=== PATIENT | female | born 1980 | race Caucasian/White ===

== ENCOUNTER 2018-01-02 10:28 | Emergency (ER) | payer MEDICAID, SELFPAY ==
[2018-01-02 10:30] VITALS: BP 134/69; PULSE 77; RESP 16; TEMP 36.6; O2SAT 99; BMI 21.6
[2018-01-02 11:28] LABS: Mucous, Urine 0 SEEN /hpf (<or=2+); Squamous Epithelial Cells - UA 0 SEEN /hpf (5-10)
[2018-01-02 11:31] LABS: Color, Urine Yellow (Yellow); Glucose, Dipstick Normal (Normal); Ketone-Dipstick 5 mg/dl (Negative); Leukocyte Esterase-Dipstick 500 /ul (Negative); Nitrite-Dipstick Positive (Negative); Occult Blood-Urine 250 /ul (Negative); Protein-Dipstick 30 mg/dl (Negative); Urine Bilirubin Dipstick Negative (Negative); Urine Clarity Cloudy (Clear); Urine Urobilinogen Normal (Normal)
[2018-01-02 11:36] LABS: Internal QC Validated? YES +Cl - CLEAR BKGD; Pregnancy, Urine Negative Negative
[2018-01-02 11:43] LABS: White Blood Cells 10-25 SEEN /hpf (0-5)
[2018-01-02 11:44] LABS: Bacteria 2+ /hpf (None Seen); Red Blood Cells-Urine 25-50 SEEN /hpf (0-5)
--- NOTE | 2018-01-02 12:57 | ED.DCSUM_ITS ---
- ER Visit Summary Date of Service: 01/02/18 Chief Complaint: UTI History of Present Illness: The patient is a 37 F with burning and cloudy urine for about a week and a half. The patient has some lower back pain but it does not feel like her prior kidney stones. No fever or systemic symptoms. Physical Examination: Afebrile and vital signs unremarkable. Nontoxic and in no acute distress. Heart regular. Abdomen soft and nontender. Back is nontender. Skin appears normal. Test Results: test negative. Urinalysis does show signs of infection. She does have 25-50 red cells as well. Emergency Department Course and Treatment: Patient is not septic. No indication for further imaging or laboratory studies. Her pain is not consistent with ureteral colic. She does not have tenderness over her kidneys. Abdomen is unremarkable. No HEAD ATHLETIC TRAINER/STRENGTH COACH symptoms. Patient will be treated with Keflex. Follow-up with primary care. Return for any new or worsening issues. Treatment Plan: As above Disposition: Discharged Impression: 1. UTI, cystitis This note was generated with [employer] dictation software. It may contain incorrect words, spelling, and punctuation that were not noted in review of the chart prior to signing ED Disposition - Plan for ED Patient: Chief Complaint: Complaint Referrals: Samuel Hunter [Primary Care Provider] -
--- NOTE | 2018-01-02 12:57 | ED.DEP ---
ED Disposition - Plan for ED Patient: Chief Complaint: Complaint Instructions: ED UTI Cystitis Female Prescriptions: Cephalexin [Keflex] 500 mg PO Q6 #28 cap Phenazopyridine HCl [Pyridium] 100 mg PO TID PRN PRN #6 tab PRN Reason: Pain Referrals: Samuel Hunter [Primary Care Provider] -
== END 2018-01-02 13:10 | disposition home or self-care (01) ==
LOC: ED 10:58
PROVIDERS: Emergency Provider Emergency Medicine; Family Provider Family Medicine; PCP Family Medicine
DX: N30.90 Cystitis, unspecified without hematuria (principal); Z72.0 Tobacco use; Z87.442 Personal history of urinary calculi
CPT/HCPCS: 81001; 81025; 99282

== ENCOUNTER 2018-02-03 05:36 | Emergency (ER) | payer MEDICAID, SELFPAY ==
[2018-02-03 05:37] VITALS: BP 110/79; PULSE 101; RESP 20; TEMP 37.4; O2SAT 99; BMI 21.9
[2018-02-03] MEDS: Ketorolac 30 MG/ML Syringe IV (06:11)
[2018-02-03] MEDS: 0.9% Normal Saline 1,000 ML 125 ML IV (06:11)
[2018-02-03] MEDS: Ondansetron 4 MG/2 ML Vial IV (06:11)
[2018-02-03 06:19] LABS: Absolute Lymphocyte Count 1.64 X10^3/ul (0.83-4.51); Absolute Neutrophil Count 7.6 X10^3/uL (2.0-7.7); Basophil# 0.02 X10^3/uL; Basophil% 0.2 % (0-1); Eosinophil# 0.14 X10^3/uL; Eosinophils% 1.3 % (0-5); Hematocrit 38.9 % (37-47); Hemoglobin 13.1 g/dl (12.0-15.0); Lymphocyte # 1.64 X10^3/ul (4.0); Lymphocyte % 15.7 % (19-41); Mean Corp Hgb Conc 33.7 g/gl (32-36); Mean Corpuscular Hgb 28.9 pg (27.0-32.0); Mean Corpuscular Volume 85.7 fL (81-99); Monocyte# 0.99 X10^3/uL; Monocyte% 9.5 % (0-10); Neutrophil # 7.63 X10^3/uL (2.7-7.7); Neutrophil % 73.2 % (47-70); Platelet Count 236 K/mm3 (150-450); RBC Distribution Width CV 14.4 % (11.6-14.6); RBC Distribution Width SD 45.7 fl (35.1-43.9); Red Blood Count 4.54 M/mm3 (4.2-5.4); White Blood Count 10.4 K/mm3 (4.4-11.0)
[2018-02-03 06:24] LABS: POSITIVE COUNT NO; POSITIVE DIFFERENTIAL NO; POSITIVE MORPHOLOGY NO
[2018-02-03 06:48] LABS: Anion Gap 8 (5-15); BUN 12 mg/dL (7-18); Calcium,Total 8.5 mg/dL (8.5-10.1); Chloride 104 mmol/L (98-107); Creatinine, Serum 0.67 mg/dL (0.55-1.02); EST Glomerular Filtration Rate 105 mL/min (>60); Est Glom Filt Rate - Afr Amer 127 mL/min (>60); Estimated Creatinine Clearance 101.44 ml/min; Glucose 104 mg/dL (74-106); Potassium 2.9 mmol/L (3.5-5.1); Sodium Level 139 mmol/L (136-145)
[2018-02-03 06:51] LABS: Pregnancy, Serum, hCG Quali. NEGATIVE Negative (0-9 Nonpreg)
[2018-02-03 06:57] LABS: Mucous, Urine 0 SEEN /hpf (<or=2+); Red Blood Cells-Urine 0 SEEN /hpf (0-5)
[2018-02-03 06:59] LABS: Color, Urine Yellow (Yellow); Glucose, Dipstick Normal (Normal); Ketone-Dipstick Negative (Negative); Leukocyte Esterase-Dipstick 500 /ul (Negative); Nitrite-Dipstick Negative (Negative); Occult Blood-Urine 25 /ul (Negative); Protein-Dipstick 30 mg/dl (Negative); Specific Gravity, Urine 1.015 (1.002-1.030); Urine Clarity Sl. Cloudy (Clear); Urine Urobilinogen 8 mg/dl (Normal); Urine pH 6.5 (5.0 - 8.0)
[2018-02-03 07:02] LABS: Urine Bilirubin Dipstick 1 mg/dL (Negative)
[2018-02-03 07:09] LABS: Bacteria RARE /hpf (None Seen); Squamous Epithelial Cells - UA 0-5 SEEN /hpf (5-10)
[2018-02-03 07:10] LABS: White Blood Cells 50-100 SEEN /hpf (0-5)
--- NOTE | 2018-02-03 07:15 | ED.VISSUMM ---
- ER Visit Summary Date of Service: 02/03/18 Chief Complaint: [Right flank pain] History of Present Illness: The patient is a 38 F [presents the emergency department with right-sided flank pain that started 3 days ago. Patient states that yesterday she had nausea and vomited a couple of times. Patient denies any dysuria or frequency. Patient did state that she had a urinary tract infection about a month ago and she believes she was treated with cephalexin. Patient denies any urgency or frequency at this time. Patient also has a history of kidney stones but she is not sure if the pain feels quite like that. She has had low-grade fever at home up to 100.0. She has had chills and sweats.] Physical Examination: [HEENT-PERRLA, EOMI. Cranial nerves II through XII grossly intact. TMs clear. Mucous membranes moist. No adenopathy. Cardiovascular-regular rate and rhythm without murmur or ectopy Lungs-clear to auscultation, chest wall stable without crepitus or subcu emphysema Abdomen-normoactive bowel sounds, soft. Patient has tenderness to the right lower quadrant with some guarding. There is no rebound, rigidity, or perineal signs. Patient does have CVA tenderness on the right. Extremities-intact ?4, normal range of motion, normal pulses, atraumatic] Test Results: [CBC with differential obtained showed a white count 10.4, hemoglobin 13, hematocrit 39, platelets 236. Chemistry showed a sodium 139, potassium 2.9, chloride 104, CO2 27, glucose 104, BUN 12, creatinine 0.67. CT flank showed right renal swelling which could be consistent with pyelonephritis no evidence of kidney stones was noted. Patient was noted to have a normal appendix. Urinalysis obtained showed 500 leukocyte esterase and 50-100 WBCs as well as 0-5 RBCs.] Emergency Department Course and Treatment: [Patient was given a liter normal same fluid bolus. Patient was medicated with Toradol and Zofran and had good pain relief with that. Patient was given 1 g of Rocephin IV and a urine culture was sent.] Treatment Plan: [I discussed case with patient and she is comfortable with outpatient therapy at this time. She will be started on Bactrim as well as Pyridium and Zofran. Patient will use ibuprofen for discomfort. Patient advised to return if worsening pain, persistent vomiting, or condition should worsen in any way.] Disposition: [Discharged home in stable condition.] Impression: [Pyelonephritis] This note was generated with [employer] dictation software. It may contain incorrect words, spelling, and punctuation that were not noted in review of the chart prior to signing ED Disposition - Plan for ED Patient: Chief Complaint: Flank Pain Referrals: Samuel Hunter [Primary Care Provider] -
--- NOTE | 2018-02-03 07:18 | ED.DEP ---
ED Disposition - Plan for ED Patient: Chief Complaint: Flank Pain Instructions: ED Kidney Infec Female Prescriptions: Ondansetron [Zofran Odt] 4 mg PO Q8H PRN PRN #10 tab PRN Reason: Nausea Smz/Tmp Ds [Bactrim Ds] 1 tab PO BID #20 tab Phenazopyridine HCl [Pyridium] 200 mg PO TID #10 tab Referrals: Samuel Hunter [Primary Care Provider] - 3-5 Days
[2018-02-03] MEDS: Ceftriaxone 1 GM/50 ML BAG IV (07:27)
[2018-02-03 07:52] VITALS: BP 99/57; PULSE 65; RESP 14; O2SAT 98
== END 2018-02-03 07:59 | disposition home or self-care (01) ==
LOC: ED 05:51
PROVIDERS: Emergency Provider Emergency Medicine; Family Provider Family Medicine; PCP Family Medicine
DX: N12 Tubulo-interstitial nephritis, not specified as acute or chronic (principal); E87.6 Hypokalemia; E05.00 Thyrotoxicosis with diffuse goiter without thyrotoxic crisis or storm; Z72.0 Tobacco use; Z87.442 Personal history of urinary calculi
CPT/HCPCS: 74176; 80048; 81001; 84703; 85025; 87077; 87086; 87088; 87186; 96361; 96365; 96375; 99283; J7030; J2405

== ENCOUNTER 2018-09-17 07:40 | Inpatient (IN) | payer MEDICAID, SELFPAY ==
[2018-09-17] VITALS (12 sets, daily range): BP systolic 106–124; BP diastolic 58–72; PULSE 50–92; RESP 14–22; TEMP 36.4–37.1; O2SAT 97–100; BMI 21.2
--- NOTE | 2018-09-17 08:05 | RAD_ITS ---
STUDY: X-RAY - UNILATERAL RIBS ( RIGHT ) WITH CHEST REASON FOR EXAM: Female, 38 years old. Fall. TECHNIQUE - RIBS: 3 view(s) of the ribs. TECHNIQUE - CHEST: Single PA view of the chest. COMPARISON: None. FINDINGS - RIBS: Normal visualized ribs without a demonstrated fracture. FINDINGS - CHEST: There is a right apical pneumothorax with size approximately 10-20% of lung volume. There is no demonstrated pleural abnormality. Normal size heart. Normal mediastinum and segun. Normal visualized pulmonary arteries. Normal visualized aortic arch and descending thoracic aorta. Normal visualized thoracic spine. Normal visualized ribs, clavicles, and shoulders. There is no demonstrated abnormality of the visualized soft tissue structures of the upper abdomen. RAD/Ribs Uni Min 3V w/PA Chest IMPRESSION: RIBS: No evidence of definitive rib fracture. CHEST: Right apical pneumothorax approximately 10-20% by volume. Electronically Signed: Fabian Painting DO at 8:54 EDT , Service support ,
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
[2018-09-17] MEDS: Ondansetron ODT 4 MG Tablet PO (08:22)
[2018-09-17] MEDS: morphine 8 MG/ML Syringe IM (08:22)
[2018-09-17] MEDS: 0.9% Normal Saline 1,000 ML 1000 ML IV (09:48)
[2018-09-17 10:04] LABS: Absolute Lymphocyte Count 1.09 X10^3/ul (0.83-4.51); Absolute Neutrophil Count 22.3 X10^3/uL (2.0-7.7); Basophil# 0.02 X10^3/uL; Basophil% 0.1 % (0-1); Differential Indicated SCAN CRITERIA MET; Eosinophil# 0.02 X10^3/uL; Eosinophils% 0.1 % (0-5); Hematocrit 43.2 % (37-47); Hemoglobin 14.8 g/dl (12.0-15.0); Lymphocyte # 1.09 X10^3/ul (4.0); Lymphocyte % 4.4 % (19-41); Mean Corp Hgb Conc 34.3 g/gl (32-36); Mean Corpuscular Hgb 29.4 pg (27.0-32.0); Mean Corpuscular Volume 85.9 fL (81-99); Mean Platelet Vol. 10.8 fl (6.2-12.0); Monocyte# 1.41 X10^3/uL; Monocyte% 5.7 % (0-10); Neutrophil # 22.31 X10^3/uL (2.7-7.7); Neutrophil % 89.4 % (47-70); POSITIVE COUNT NO; POSITIVE DIFFERENTIAL YES; POSITIVE MORPHOLOGY NO; Platelet Count 243 K/mm3 (150-450); RBC Distribution Width CV 14.6 % (11.6-14.6); RBC Distribution Width SD 45.7 fl (35.1-43.9); Red Blood Count 5.03 M/mm3 (4.2-5.4); White Blood Count 24.9 K/mm3 (4.4-11.0)
[2018-09-17 10:08] LABS: Anion Gap 4 (5-15); BUN 12 mg/dL (7-18); BUN/Creat Ratio 18.7 RATIO (10-20); Calcium,Total 8.4 mg/dL (8.5-10.1); Chloride 106 mmol/L (98-107); Creatinine, Serum 0.64 mg/dL (0.55-1.02); EST Glomerular Filtration Rate 109 mL/min (>60); Est Glom Filt Rate - Afr Amer 132 mL/min (>60); Estimated Creatinine Clearance 101.41 ml/min; Glucose 97 mg/dL (74-106); Potassium 3.8 mmol/L (3.5-5.1); Sodium Level 136 mmol/L (136-145)
--- NOTE | 2018-09-17 10:16 | RAD_ITS ---
STUDY: X-RAY CHEST REASON FOR EXAM: Female, 38 years old. Post chest tube placement. TECHNIQUE: Single AP portable view of the chest. COMPARISON: 17 September 2017 FINDINGS: Right chest tube in place with her reduced/resolved pneumothorax. Mild prominent interstitial markings are present. There is no demonstrated pleural abnormality. Normal size heart. Normal mediastinum and segun. Normal visualized pulmonary arteries. Normal visualized aortic arch and descending thoracic aorta. Normal visualized thoracic spine. Normal visualized ribs, clavicles, and shoulders. There is no demonstrated abnormality of the visualized soft tissue structures of the upper abdomen. RAD/Chest 1 View (Portable) IMPRESSION: Chest tube in place with resolved pneumothorax. Electronically Signed: Fabian Painting DO at 10:57 EDT , Service support ,
[2018-09-17 10:19] LABS: Internal QC Validated? YES +Cl - CLEAR BKGD; Pregnancy, Serum, hCG Quali. NEGATIVE Negative
--- NOTE | 2018-09-17 11:01 | NURSING ---
MED SURG ASHELFAH PNEUMOTHORAX
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
[2018-09-17] MEDS: Morphine 4 MG/ML Syringe IV (11:23)
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
[2018-09-17] MEDS: 0.9% Normal Saline 1,000 ML 75 ML IV (14:04)
[2018-09-17] MEDS: 0.9% NaCl Peripheral Flush Adult/Peds IV (14:06)
[2018-09-17] MEDS: Ondansetron 4 MG/2 ML Vial IV (16:23)
[2018-09-17] MEDS: Morphine 2 MG/ML Syringe IV ×2 (16:23→20:26)
[2018-09-17] MEDS: Acetaminophen 325 MG Tablet 650 MG PO (18:27)
--- NOTE | 2018-09-17 19:28 | CT_ITS ---
STUDY: CT FACIAL BONES WITHOUT CONTRAST REASON FOR EXAM: Female, 38 years old. Jaw pain. Injury. RADIATION DOSAGE (If Supplied By Facility): CTDIvol = ( 29.38 ) mGy, DLP = ( 518.07 ) mGycm TECHNIQUE: The patient was scanned in a multi detector CT scanner. Sagittal and coronal images were reconstructed. Individualized dose optimization techniques were used for this CT. COMPARISON: None. FINDINGS: Normal soft tissue structures. Normal orbital capps and orbital contents. Normal nasal bones and anterior nasal spine. Normal facial bones. There is no demonstrated fracture. There are extensive dental caries and periodontal disease. Normal visualized paranasal sinuses. CT/Sinus/Facial Bone IMPRESSION: No acute facial fracture. Electronically Signed: Cody Minor MD at 20:09 EDT , Service support ,
[2018-09-18] VITALS (8 sets, daily range): BP systolic 100–127; BP diastolic 47–66; PULSE 55–83; RESP 16–18; TEMP 36.9–37.2; O2SAT 94–100
[2018-09-18] MEDS: Morphine 2 MG/ML Syringe IV ×2 (00:52→07:05)
[2018-09-18] MEDS: 0.9% Normal Saline 1,000 ML 75 ML IV (02:43)
[2018-09-18 05:59] LABS: Absolute Neutrophil Count 6.3 X10^3/uL (2.0-7.7); Basophil# 0.02 X10^3/uL; Basophil% 0.2 % (0-1); Eosinophil# 0.13 X10^3/uL; Eosinophils% 1.4 % (0-5); Hematocrit 37.6 % (37-47); Hemoglobin 12.3 g/dl (12.0-15.0); Lymphocyte % 21.1 % (19-41); Mean Corp Hgb Conc 32.7 g/gl (32-36); Mean Corpuscular Hgb 28.4 pg (27.0-32.0); Mean Corpuscular Volume 86.8 fL (81-99); Mean Platelet Vol. 11.2 fl (6.2-12.0); Monocyte# 0.62 X10^3/uL; Monocyte% 6.9 % (0-10); Neutrophil # 6.33 X10^3/uL (2.7-7.7); Neutrophil % 70.3 % (47-70); Platelet Count 181 K/mm3 (150-450); RBC Distribution Width CV 14.7 % (11.6-14.6); RBC Distribution Width SD 47.5 fl (35.1-43.9); Red Blood Count 4.33 M/mm3 (4.2-5.4)
[2018-09-18 06:15] LABS: POSITIVE COUNT NO; POSITIVE DIFFERENTIAL NO; POSITIVE MORPHOLOGY NO
--- NOTE | 2018-09-18 08:26 | RAD_ITS ---
STUDY: X-RAY CHEST REASON FOR EXAM: Female, 38 years old. Follow-up pneumothorax. TECHNIQUE: Single portable frontal chest. COMPARISON: September 17, 2018. FINDINGS: There is stable appearance and position of the basilar inserted, apically oriented right chest tube. There is no plain film evident residual or recurrent pneumothorax. There is no midline shift and central structures. Again seen is mild prominence of the interstitium bilaterally and diffusely without focal alveolar opacification. There is no pleural effusion. The cardiomediastinal silhouette appears stable and unremarkable. There is no evident acute osseous abnormality. There is no demonstrated abnormality of the visualized soft tissue structures of the upper abdomen. RAD/Chest 1 View (Portable) IMPRESSION: Small bore right chest tube angled towards the apex. No plain film evidence residual or recurrent pneumothorax. Mild prominence of the interstitium may represent fibrosis. There is no focal alveolar opacification. There is no pleural effusion. Electronically Signed: Estuardo Ahmadi MD at 9:08 EDT , Service support ,
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
[2018-09-18] MEDS: Acetaminophen 325 MG Tablet 650 MG PO (09:52)
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
--- NOTE | 2018-09-18 11:05 | RAD_ITS ---
STUDY: X-RAY CHEST REASON FOR EXAM: Female, 38 years old. Status post chest tube removal. TECHNIQUE: Single AP view of the chest. COMPARISON: September 17, 2018. FINDINGS: The right apically oriented chest tube has been discontinued. There is a very, very tiny crescent of extrapleural air in the right superior-lateral apex. No midline shift. The lungs otherwise appear clear. No pleural effusion. The cardiomediastinal silhouette is stable and normal appearing. There is no acute osseous abnormality. There is no demonstrated abnormality of the visualized soft tissue structures of the upper abdomen. RAD/Chest 1 View IMPRESSION: Interval removal of right apically oriented chest tube. There is a very, very tiny crescent of extrapleural air in the right superior-lateral apex. No midline shift. Otherwise no acute cardiopulmonary disease. Electronically Signed: Estuardo Ahmadi MD at 11:25 EDT , Service support ,
--- NOTE | 2018-09-18 13:44 | DCINST_ITS ---
Discharge Diet: No Restrictions Discharge Activity: May not drive while taking narcotic pain medications. Additional Instructions: Arrive early to obtain CXR in same building - first floor Allergies/Adverse Reactions: Allergies No Known Allergies Allergy (Verified 09/17/18 07:43) Medications to take at Discharge NK 09/17/18 Primary Care Physician: Samuel Hunter [Primary Care Provider] - Test Results: Test results from this visit will be discussed in further detail at your follow- up appointment, if applicable. Please Follow Up With: Ruby Ortiz MD - call When: to be see on September 21, please call for time
--- NOTE | 2018-09-18 13:55 | CASEMGMT ---
Social Work Note SW received call from Joslyn Gao, Social Service Manger, stating Devorah Sotelo from [facility] called her and would like pt to call her in regards to safety plan for pt's child. Devorah Sotelo [phone]. SW in to speak with pt. SW updated pt that Devorah Sotelo at [facility] would like pt to call her in regards to safety plan for her child, SW provided pt with Devorah Sotelo phone number. Pt states understanding. [place] Gunderson BALING MACHINE TENDER, CASE PICKER
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
== END 2018-09-18 16:55 | disposition home or self-care (01) | DRG 815 ==
LOC: ED 08:17 → MS3 11:17
PROVIDERS: Admitting Provider Hospitalist; Emergency Provider Emergency Medicine; Family Provider Family Medicine; PCP Family Medicine; Referring Provider Hospitalist; Visit Provider Internal Medicine
DX: T74.11XA Adult physical abuse, confirmed, initial encounter (principal); S27.0XXA Traumatic pneumothorax, initial encounter; Y04.2XXA Assault by strike against or bumped into by another person, initial encounter; S06.0X9A Concussion with loss of consciousness of unspecified duration, initial encounter; S00.03XA Contusion of scalp, initial encounter; Y07.03 Male partner, perpetrator of maltreatment and neglect; Z87.442 Personal history of urinary calculi; F17.210 Nicotine dependence, cigarettes, uncomplicated
CPT/HCPCS: 32551; 36415; 70450; 70486; 71045; 71101; 80048; 84703; 85025; 97802; 99285; J7030; A4216; J2405

== ENCOUNTER 2019-11-29 11:33 | Day surgery (SDC) | payer OTHER, SELFPAY ==
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
[2019-11-29] VITALS (7 sets, daily range): BP systolic 97–111; BP diastolic 62–73; PULSE 43–72; RESP 14–16; TEMP 36.3–37.1; O2SAT 60–100; BMI 22.8
[2019-11-29 12:07] LABS: Hematocrit 43.7 % (37-47); Hemoglobin 14.1 g/dL (12.0-15.0); Mean Corp Hgb Conc 32.3 g/dL (32-36); Mean Corpuscular Hgb 28.4 pg (27.0-32.0); Mean Corpuscular Volume 88.1 fL (81-99); Mean Platelet Vol. 10.7 fl (6.2-12.0); Platelet Count 243 K/mm3 (150-450); RBC Distribution Width CV 16.1 % (11.6-14.6); RBC Distribution Width SD 51.4 fl (35.1-43.9); Red Blood Count 4.96 M/mm3 (4.2-5.4); White Blood Count 9.8 K/mm3 (4.4-11.0)
[2019-11-29 12:37] LABS: Internal QC Validated? YES +Cl - CLEAR BKGD; Pregnancy, Urine Negative Negative
[2019-11-29] MEDS: Lactated Ringers 1,000 ML 100 ML IV ×2 (12:44→14:59)
--- NOTE | 2019-11-29 12:55 | EMB_PTH ---
PATIENT: EMILY WYNNE LOC: [facility] [place] U#:[id number] AGE/SX: 39/F ROOM: RE11/29/[address]: Dr. Susan Shah, MDDOB: 1980 BED: DIS: 11/29/2019 SPEC #: [id number] RECD: 12/03/19 07:57 STATUS: AMIE BUNNY #: [id number] BROOKLYNN: 11/29/19 12:[address]: Susan Shah DEPT: SURGICAL PATHOLOGY RECD BY: Rasheed Bruce ENTERED: 12/03/19 09:48 SP TYPE: ENDOM BX/C OTHR DR: Faby Quiñones, MARLENE Tissues: Endometrium, NOS Procedures: Surgery Specimen Level IV HEADER OPERATION: Hysteroscopy, D & C Symphion, polypectomy PRE-OP DIAGNOSIS: Abnormal uterine bleeding; endometrial polyp TISSUE SUBMITTED: Endometrial curettings and polyp MICROSCOPIC DIAGNOSIS Endometrial curettings and polyp, excision: Polypoid fragments of secretory endometrium. Rare strips of benign squamous mucosa. AM:jennifer 12/04/19 MICROSCOPIC DESCRIPTION Slides are reviewed. GROSS DESCRIPTION Received in fixative is one container labeled with the patient's name and designated endometrial curettings and polyp. The specimen consists of multiple irregular fragments of azevedo soft tissue mixed with polypoid tissue that in aggregate measure 7.5 x 3 x 0.3 cm. The entire specimen is submitted in three cassettes. / SJ:jennifer 12/03/19 TC:5 CPT: 11216
--- NOTE | 2019-11-29 13:35 | DCINST_ITS ---
Discharge Diet: No Restrictions Discharge Activity: Return to Normal Activity, May Shower, May Take a Tub Bath - in 2 weeks. May resume sexual activity in: 1 week Call your doctor if you observe: Fever of 101 or Higher, Using more than one pad per hour Allergies/Adverse Reactions: Allergies No Known Allergies Allergy (Verified 11/23/19 09:19) Medications to take at Discharge Paroxetine HCl [Paxil] 40 mg PO DAILY 11/23/19 Zolpidem Tartrate [Ambien] 10 mg PO QHS 11/23/19 Primary Care Physician: Faby Quiñones NP-C [Primary Care Provider] - Test Results: Test results from this visit will be discussed in further detail at your follow- up appointment, if applicable. Please Follow Up With: Susan Shah MD When: as scheduled in 2 weeks
--- NOTE | 2019-11-29 13:37 | PCM.OPRPT ---
Report of Operation Date of Procedure: 11/29/19 Pre-Operative Diagnosis: AUB, endometrial polyp Post-Operative Diagnosis: same Surgery/Procedure Performed:: hysteroscopy, D&C, polypectomy Description of Surgical Findings:: endometrial polyp at right coruna Type of Anesthesia:: MAC Special Medications: none Specimen's removed: endometrial curettings and Endometrial polyp Drains: none Estimated Blood Loss (mL): <5cc Fluids Replaced: 750 Description of Procedure: Informed consent was obtained the patient was taken the operating room she was placed in supine position. She was given anesthesia. She was then placed in the [facility] where she was prepped and draped in the normal sterile fashion. Bladder was drained- At this time the weighted speculum was placed in the posterior fornix of vagina. Single-tooth tenaculum was used to gently grasp the anterior lip the cervix. At this time the uterine cavity was sounded to approximately 8 cm. Gentle dilatation was performed once adequate dilatation of the cervix was achieved the hysteroscope using normal saline as a distention medium was placed. Tubal ostia visualized. Endometrial polyp at fundal aspect in right cornua. Symphion resecting device used to obtain endometrial curettings and to perform polypectomy followed by a gentle sharp curettage. The hysteroscope was then reinserted and cavity noted to be intact, both tubal ostia visualized. Tissue will be sent to pathology for evaluation. Tenaculum removed. Good hemostasis. Instrument, lap count correct x 2. Vaginal Sweep was negative. Grafts/Implants Used: none - Complications none - Admit VTE Documentation VTE Present on Admission: Yes VTE Mechan Device Prophylaxis: SCD's VTE Pharm Prophylaxis ordered?: No
[2019-11-29] MEDS: Acetaminophen 500 MG Tablet 1000 MG PO (15:24)
== END 2019-11-29 15:40 | disposition home or self-care (01) ==
LOC: SDC 11:36 → AC 11:39
PROVIDERS: Anesthesiology; PCP Nurse Practitioner Family; Referring Provider Obstetrics & Gynecology; Visit Provider Obstetrics & Gynecology
PROC: 0UB98ZZ Excision of Uterus, Via Natural or Artificial Opening Endoscopic (ICD-10-PCS; CPT 58558; principal; 2019-11-29 12:40)
DX: N84.0 Polyp of corpus uteri (principal); N93.8 Other specified abnormal uterine and vaginal bleeding; Z11.59 Encounter for screening for other viral diseases; F41.9 Anxiety disorder, unspecified; F32.9 Major depressive disorder, single episode, unspecified; Z79.899 Other long term (current) drug therapy; F17.200 Nicotine dependence, unspecified, uncomplicated
CPT/HCPCS: 00952; 58558; 36415; 81025; 85027; 87635; 88305; G2023; J7120; J2405; U0003

== ENCOUNTER 2020-01-27 00:48 | Emergency (ER) | payer OTHER, SELFPAY ==
[2019-11-29 12:36] VITALS: BMI 22.8
[2020-01-27 00:49] VITALS: BP 120/83; PULSE 95; RESP 20; TEMP 36.4; O2SAT 100; BMI 22.8
--- NOTE | 2020-01-27 00:56 | ED.VIS.GEN ---
History of Present Illness Chief Complaint: Allergic Reaction Informant: Patient Onset: Today Narrative: Present secondary to allergic reaction. She states she went to bed around 8 PM and felt fine. She woke an hour ago with hives, itching, throat tightness. She states she vomited a couple times. She denies any new medications, foods, detergents, etc. She denies any significant allergic reactions in the past. She has not yet taken anything for her symptoms. - Past Medical History (1) Neurofibromatosis Status: Chronic (2) Graves disease Status: Chronic (3) Anxiety and depression Status: Chronic (4) History of kidney stones Status: Chronic Past Medical History - Allergies and Home Meds Allergies/Adverse Reactions: Allergies No Known Allergies Allergy (Verified 01/27/20 00:52) Primary Care Physician: Faby Quiñones NP-C [Primary Care Provider] - Surgical History: - - Lithotripsy for kidney stones. Smoking Status: Current every day smoker - Family History Maternal Family History: Reports: Asthma Paternal Family History: Reports: Diabetes, Hypertension, - - Liver disease. Review of Systems General: Denies: Chills, Fever Eyes: Denies: Visual changes - bilaterally ENT: Reports: - - Throat tightness. Denies: Bilateral ear pain Cardiovascular: Denies: Chest pain Respiratory: Denies: Dyspnea Gastrointestinal: Reports: Vomiting Skin: Reports: Rash Allergy: Reports: Uticaria. Denies: Swelling of the mouth, Swelling of the tongue Physical Exam Vital Signs/Narrative: Vital Signs Temp Pulse Resp BP Pulse Ox 01/27/20 00:49 97.6 F L 95 20 H 120/83 H 100 Inital Vital Signs reviewed: Yes General: Well nourished, Well developed Head: Normocephalic ENT: Moist mucous membranes, - - Steer pharynx examination normal. Uvula midline. Tolerating secretions. Speaks with a strong voice. Cardiovascular: Regular rate, Regular rhythm Respiratory: No distress, CTA bilaterally Abdomen: Soft, Nontender Back: Nontender Extremities: Nontender Skin: - - Urticarial lesions noted over the extremities and trunk. Neurological: Alert, Oriented x3 Psychological: - - Anxious Diagnostic/Tx/Re-eval - Medical Decision Making Patient was given EpiPen followed by a dose of Solu-Medrol, Benadryl, and Pepcid. She was observed for 2-1/2 hours in the emergency room. Symptoms are improved at this time. Patient be given prescriptions for prednisone, Benadryl, Pepcid, as well as an EpiPen. She is given return instructions. ED Disposition - Plan for ED Patient: Disposition: Home or Assisted Living Diagnosis: Allergic reaction Instructions: ED General Allergic Reactions Prescriptions: DiphenhydrAMINE [Benadryl] 50 mg PO TID PRN PRN #20 capsule PRN Reason: Allergies Epi Pen (for allergic rxn) 0.3 mg IM X1 PRN #1 syringe PRN Reason: Anaphylaxis Famotidine [Pepcid] 20 mg PO BID #28 tablet Prednisone 10 mg PO UD #33 tablet Referrals: Faby Quiñones NP-C [Primary Care Provider] - 5-7 Days
[2020-01-27] MEDS: MethylPREDNISolone 125 MG/2 ML Vial IV (01:03)
[2020-01-27] MEDS: DiphenhydrAMINE 50 MG/ML Syringe 25 MG IV (01:03)
[2020-01-27] MEDS: Famotidine 200 MG/20 ML MDV 20 MG in 0.9% Normal Saline (Pres. free 8 ML 300 MG IV (01:10)
[2020-01-27 01:13] VITALS: BP 115/93; PULSE 78; RESP 14; O2SAT 98
[2020-01-27] MEDS: Ondansetron 4 MG/2 ML Vial IV (01:33)
[2020-01-27 01:48] LABS: Anion Gap 9 (5-15); BUN 8 mg/dL (7-18); BUN/Creat Ratio 10.8 RATIO (10-20); Calcium,Total 8.8 mg/dL (8.5-10.1); Chloride 100 mmol/L (98-107); Creatinine, Serum 0.74 mg/dL (0.55-1.02); EST Glomerular Filtration Rate 92 mL/min (>60); Est Glom Filt Rate - Afr Amer 111 mL/min (>60); Estimated Creatinine Clearance 90.03 ml/min; Glucose 137 mg/dL (74-106); Potassium 3.3 mmol/L (3.5-5.1); Sodium Level 136 mmol/L (136-145)
[2020-01-27 01:53] LABS: Absolute Lymphocyte Count 1.89 X10^3/uL (0.83-4.51); Absolute Neutrophil Count 10.3 X10^3/uL (2.0-7.7); Basophil# 0.01 X10^3/uL; Basophil% 0.1 % (0-1); Eosinophil# 0.04 X10^3/uL; Eosinophils% 0.3 % (0-5); Hematocrit 48.2 % (37-47); Hemoglobin 16.3 g/dL (12.0-15.0); Lymphocyte # 1.89 X10^3/ul (4.0); Lymphocyte % 14.4 % (19-41); Mean Corp Hgb Conc 33.8 g/dL (32-36); Mean Corpuscular Hgb 28.4 pg (27.0-32.0); Mean Platelet Vol. 11.9 fl (6.2-12.0); Monocyte# 0.89 X10^3/uL; Monocyte% 6.8 % (0-10); NRBC Flagged by Analyzer 0 % (0-5); Neutrophil # 10.26 X10^3/uL (2.7-7.7); Neutrophil % 77.9 % (47-70); Platelet Count 292 K/mm3 (150-450); RBC Distribution Width CV 14.3 % (11.6-14.6); RBC Distribution Width SD 43.4 fl (35.1-43.9); Red Blood Count 5.74 M/mm3 (4.2-5.4); White Blood Count 13.2 K/mm3 (4.4-11.0)
[2020-01-27 02:00] VITALS: BP 109/64; PULSE 70; RESP 13; O2SAT 96
[2020-01-27 03:00] VITALS: BP 110/62; PULSE 80; RESP 22; O2SAT 98
[2020-01-27 03:46] VITALS: BP 110/62; PULSE 80; RESP 22; O2SAT 98
== END 2020-01-27 03:46 | disposition home or self-care (01) ==
PROVIDERS: Emergency Provider Emergency Medicine; PCP Nurse Practitioner Family
DX: T78.40XA Allergy, unspecified, initial encounter (principal); F17.200 Nicotine dependence, unspecified, uncomplicated; Z87.442 Personal history of urinary calculi
CPT/HCPCS: 80048; 85025; 96374; 96375; 99284; A4216; J2405; J3490

== ENCOUNTER 2020-01-28 09:08 | Emergency (ER) | payer OTHER, SELFPAY ==
[2020-01-27 00:49] VITALS: BMI 22.8
[2020-01-28 09:10] VITALS: BP 132/98; PULSE 110; RESP 13; TEMP 36.9; O2SAT 99; BMI 21.6
--- NOTE | 2020-01-28 09:20 | ED.VISSUMM ---
- ER Visit Summary Date of Service: 01/28/20 Chief Complaint: Allergic reaction History of Present Illness: The patient is a 40 F presenting with possible allergic reaction. Patient was seen in the ED yesterday for similar complaints. She was treated with medications and discharged when feeling improved. She states she was unable to fill her prescriptions yesterday. She woke up this morning with diffuse itching. She complains of throat tightness but no difficulty breathing or swallowing. She denies any known cause for this. She denies new soaps, detergents, medications, foods, pets. Denies other complaints. Physical Examination: Vitals are stable. Patient is afebrile. Alert no acute distress. HEENT exam no pharyngeal edema. No tongue swelling Neck is supple. Lungs are clear and equal bilaterally. Heart is regular rate and rhythm. Abdomen is soft nontender nondistended. Extremities are unremarkable. Skin is warm and dry. Diffuse urticaria No focal neurologic deficit. Remainder of exam is unremarkable. Emergency Department Course and Treatment: Patient given Solu-Medrol, Benadryl IV. Patient was observed in the ED. On reevaluation, she is feeling improved. Her pharynx continues to be normal. She has no pharyngeal edema or tongue swelling. Her itching has improved. She will fill her prescriptions that she was given yesterday. She is advised to follow-up with her primary care physician. Advised to return to ED for worsening symptoms. Disposition: Discharge home Impression: Urticaria This note was generated with [employer] dictation software. It may contain incorrect words, spelling, and punctuation that were not noted in review of the chart prior to signing ED Disposition - Plan for ED Patient: Instructions: ED URTICARIA Referrals: Faby Quiñones NP-C [Primary Care Provider] -
[2020-01-28] MEDS: MethylPREDNISolone 125 MG/2 ML Vial IV (09:31)
[2020-01-28] MEDS: DiphenhydrAMINE 50 MG/ML Syringe 25 MG IV (09:31)
--- NOTE | 2020-01-28 11:01 | ED.DEP ---
ED Disposition - Plan for ED Patient: Instructions: ED URTICARIA Referrals: Faby Quiñones NP-C [Primary Care Provider] -
[2020-01-28 11:25] VITALS: BP 123/67; PULSE 52; RESP 16; O2SAT 99
== END 2020-01-28 11:25 | disposition home or self-care (01) ==
PROVIDERS: Emergency Provider Emergency Medicine; PCP Nurse Practitioner Family
DX: L50.0 Allergic urticaria (principal); F17.200 Nicotine dependence, unspecified, uncomplicated; F41.9 Anxiety disorder, unspecified
CPT/HCPCS: 96374; 96375; 99283; A4216

== ENCOUNTER 2020-02-22 22:38 | Emergency (ER) | payer OTHER, SELFPAY ==
[2020-02-22 22:39] VITALS: BP 157/142; PULSE 110; RESP 18; TEMP 36.8; O2SAT 100; BMI 21.4
[2020-02-22 22:45] VITALS: BP 123/61
--- NOTE | 2020-02-22 22:48 | ED.DCSUM_ITS ---
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 She states since this started she did an EpiPen injection about 30 minutes ago, and it helped her throat but not the hives or the itching yet. She denies any peripheral edema, syncope, lightheadedness, chest discomfort, wheezing. She does not know the etiology. She works at a local [employer]. She has been working with no new chemicals other than usual. She was done with working at home with a started, she can describe no events that could be related to this reaction tonight. She is post to follow-up with an russet repairer but has not been able to yet. She did not have any Benadryl so she did not take any or any other medications. No recent illnesses, injury, new soaps, shampoos, medications, chemicals. - Past Medical History (1) Anxiety and depression Status: Chronic (2) Graves disease Status: Chronic (3) History of kidney stones Status: Chronic (4) Neurofibromatosis Status: Chronic Past Medical History - Allergies and Home Meds Allergies/Adverse Reactions: Allergies No Known Allergies Allergy (Verified 02/22/20 22:41) Primary Care Physician: Faby Quiñones NP, WELDING MACHINE OPERATOR ELECTROSLAG-C [Primary Care Provider] - Surgical History: - - Lithotripsy for kidney stones. Smoking Status: Current every day smoker Drugs: None - Family History Maternal Family History: Reports: Asthma Paternal Family History: Reports: Diabetes, Hypertension, - - Liver disease. Review of Systems General: Denies: Chills, Fever, Sweats Eyes: Denies: Visual changes - bilaterally, Diplopia ENT: Reports: - - Globus sensation. See HPI.. Denies: Rhinorrhea, Sore throat Cardiovascular: Denies: Chest pain, Palpitations Respiratory: Denies: Dyspnea, Cough, Dyspnea on exertion Gastrointestinal: Denies: Abdominal pain, Nausea, Vomiting, Diarrhea, Melena, Hematochezia Genitourinary: Denies: Dysuria, Hematuria, Frequency Musculoskeletal: Denies: Neck pain, Back pain, Swelling, Extremity Pain Skin: Reports: Rash. Denies: Wounds Neurological: Denies: Headache, Weakness, Numbness Physical Exam Vital Signs/Narrative: Vital Signs Temp Pulse Resp BP Pulse Ox 02/22/20 22:45 123/61 H 02/22/20 22:39 98.2 F 110 H 18 157/142 H 100 Inital Vital Signs reviewed: Yes General: Well nourished, Well developed, No Acute Distress - Appearing, no distress. No stridor. Conversive in full sentences. Head: Normocephalic, Atraumatic Eyes: Perrl, EOMI ENT: Moist mucous membranes, No rhinorrhea, - - Posterior oropharynx clear and normal. No trismus. No tongue edema or other signs of angioedema. Neck: Supple, Nontender, No JVD Cardiovascular: Regular rate, Regular rhythm, No murmurs. Negative for: Tachycardia Respiratory: No distress, CTA bilaterally, Chest nontender Abdomen: Soft, Nontender, Nondistended, Normal bowel sounds Back: Nontender, Normal Inspection Extremities: Nontender, No edema Skin: Normal color, No Trauma, Rash - Scattered small red nontender lesions upper abdominal wall. No other lesions, petechia, purpura, bulla. Neurological: Alert, Oriented x3, Cranial nerves II-XII grossly intact, Normal Strength, Normal Sensation Psychological: Normal affect, Normal Mood Diagnostic/Tx/Re-eval - Medical Decision Making Patient was given IV fluids, Benadryl, Solu-Medrol. On reevaluation she is feeling much better. I do not think she is acutely anaphylactic at this time, however I certainly would not discourage her from using her epinephrine in a situation where she is having the sensation of swelling in her throat. I will refill her EpiPen in addition to putting her on prednisone for a total of 5 days, and I feel she is safe to be discharged home. She is comfortable with that plan. Encouraged to continue making sure that she is getting a follow-up appointment with the lan specialist. ED Disposition - Plan for ED Patient: Disposition: Home or Assisted Living Diagnosis: Acute allergic reaction Instructions: ED General Allergic Reactions Prescriptions: Prednisone [Deltasone] 40 mg PO DAILY #8 tab Prescription Printed Epi Pen (for allergic rxn) 0.3 mg IM X1 PRN #1 syringe PRN Reason: Anaphylaxis Prescription Printed Referrals: Faby Quiñones NP, WELDING MACHINE OPERATOR ELECTROSLAG-C [Primary Care Provider] - (And/or russet repairer)
[2020-02-22] MEDS: MethylPREDNISolone 125 MG/2 ML Vial IV (22:56)
[2020-02-22] MEDS: DiphenhydrAMINE 50 MG/ML Syringe 25 MG IV (22:56)
[2020-02-23 00:01] VITALS: BP 113/87; PULSE 72; RESP 16; O2SAT 100
== END 2020-02-23 00:02 | disposition home or self-care (01) ==
PROVIDERS: Emergency Provider Emergency Medicine; PCP Nurse Practitioner Family
DX: T78.40XA Allergy, unspecified, initial encounter (principal); F17.200 Nicotine dependence, unspecified, uncomplicated; F41.9 Anxiety disorder, unspecified
CPT/HCPCS: 96374; 96375; 99283; J7040; A4216

== ENCOUNTER 2020-04-09 05:58 | Emergency (ER) | payer OTHER, SELFPAY ==
[2020-04-09 05:58] VITALS: BP 97/62; PULSE 88; RESP 15; TEMP 36.6; O2SAT 99; BMI 21.6
[2020-04-09] MEDS: MethylPREDNISolone 125 MG/2 ML Vial IV (06:17)
[2020-04-09] MEDS: DiphenhydrAMINE 50 MG/ML Syringe 25 MG IV (06:18)
[2020-04-09] MEDS: Famotidine 200 MG/20 ML MDV 20 MG in 0.9% Normal Saline (Pres. free 8 ML 300 MG IV (06:20)
[2020-04-09 06:25] VITALS: BP 104/90; PULSE 74; RESP 15; O2SAT 100
--- NOTE | 2020-04-09 06:36 | ED.DCSUM_ITS ---
History of Present Illness Chief Complaint: Allergic Reaction Narrative: Patient presenting due to concern for an allergic reaction. Patient has a history of intermittently breaking out in hives. She has seen behavioral sciences department chair in the past, there is no specific inciting factor. Patient states that today she started to notice that she was again breaking out in hives. She reports that she feels as though she has a sensation in her lips, but denies any shortness of breath, throat swelling, or tongue swelling. Full review shows the patient to have no new exposures that she knows about. She tells me that she is used an EpiPen in the past, did not today. She denies recent illnesses. Hives are diffuse and are itchy, no other exacerbating relieving factors. Past Medical History - Allergies and Home Meds Allergies/Adverse Reactions: Allergies No Known Allergies Allergy (Verified 04/09/20 06:00) Primary Care Physician: Faby Quiñones NP, DIRECT CARE PROFESSIONAL-C [Primary Care Provider] - Prior records reviewed: Yes Past Medical History: - - Prior history of allergic reactions Surgical History: - - Lithotripsy for kidney stones. Lives: With Family Smoking Status: Current every day smoker - Family History Maternal Family History: Reports: Asthma Paternal Family History: Reports: Diabetes, Hypertension, - - Liver disease. Review of Systems All systems negative except as indicated General: Denies: Chills, Fever, Sweats Eyes: Denies: Visual changes - bilaterally, Diplopia ENT: Denies: Rhinorrhea, Sore throat Cardiovascular: Denies: Chest pain, Palpitations Respiratory: Denies: Dyspnea, Cough, Dyspnea on exertion Gastrointestinal: Denies: Abdominal pain, Nausea, Vomiting, Diarrhea, Melena, Hematochezia Genitourinary: Denies: Dysuria, Hematuria, Frequency Musculoskeletal: Denies: Back pain, Extremity Pain Skin: Reports: Rash Neurological: Denies: Headache, Weakness, Numbness Physical Exam Vital Signs/Narrative: Vital Signs Temp Pulse Resp BP Pulse Ox 04/09/20 06:25 74 15 104/90 H 100 04/09/20 05:58 97.8 F 88 15 97/62 99 Inital Vital Signs reviewed: Yes General: Well nourished, Well developed, No Acute Distress Head: Normocephalic, Atraumatic Eyes: Perrl, EOMI ENT: Moist mucous membranes, No rhinorrhea Neck: Supple, Nontender Cardiovascular: Regular rate, Regular rhythm, No murmurs Respiratory: No distress, CTA bilaterally, Chest nontender Abdomen: Soft, Nontender, Nondistended, Normal bowel sounds Back: Nontender, Normal Inspection Extremities: Nontender, No edema Skin: Normal color, - - Diffuse urticarial rash on the patient's chest abdomen back arms and legs Neurological: Alert, Oriented x3, Cranial nerves II-XII grossly intact, Normal Strength, Normal Sensation Psychological: Normal affect, Normal Mood Diagnostic/Tx/Re-eval - Medical Decision Making Patient presented secondary to hives. She does not appear to be experiencing anaphylaxis at this time. Patient was given Benadryl Solu-Medrol and Pepcid. Patient will be observed in the emergency department, as long as she does not have any evidence of progression to angioedema or anaphylaxis will be discharged with a course of prednisone. Patient will follow-up with primary care. ED Disposition - Plan for ED Patient: Disposition: Home or Assisted Living Diagnosis: Urticaria Instructions: ED URTICARIA Prescriptions: Prednisone [Deltasone] 40 mg PO DAILY #10 tab Prescription Printed Referrals: Faby Quiñones NP, DIRECT CARE PROFESSIONAL-C [Primary Care Provider] - 3-5 Days
[2020-04-09 06:51] VITALS: BP 108/61; PULSE 73; RESP 15; O2SAT 100
[2020-04-09 07:12] VITALS: BP 108/70; PULSE 73; RESP 18; O2SAT 100
== END 2020-04-09 07:12 | disposition home or self-care (01) ==
PROVIDERS: Emergency Provider Emergency Medicine; PCP Nurse Practitioner Family
DX: L50.0 Allergic urticaria (principal); F17.200 Nicotine dependence, unspecified, uncomplicated
CPT/HCPCS: 96374; 96375; 99283; A4216; J3490

== ENCOUNTER 2020-04-12 05:39 | Emergency (ER) | payer OTHER, SELFPAY ==
[2020-04-12 05:40] VITALS: BP 137/98; PULSE 111; RESP 16; TEMP 36.8; O2SAT 96; BMI 22.8
--- NOTE | 2020-04-12 05:50 | ED.VIS.GEN ---
History of Present Illness Informant: Patient Onset: Hours Context: Sudden Onset Timing: Continuous Quality: Erythematous raised pruritic Location: Generalized Current Severity: Severe Maximum Severity: Severe Worsened by: Unknown Relieved by: Was seen Tuesday and treated with H1 and H2 tomasz and prednisone Associated Symptoms: Throat tight Narrative: Patient is a 40-year-old woman who has been to the emergency room several times for hives. First record that I noted was December 2019. She apparently has not followed up for allergy testing. She denies ingestion of shellfish, nuts or berries. She has no known exposure. She states her throat feels tight. She is able to swallow. She has no difficulty breathing. She does appear anxious. She is itching profusely. She denies wheezing. She denies nausea, vomiting diarrhea. She denies orthostatic symptoms. Prior similar symptoms: Yes Recent Illness/Hospitalization: Yes <Muniz,Ender - Last Filed: 04/12/20 06:20> <Brent Sarmiento - Last Filed: 04/12/20 08:59> Chief Complaint: Rash - Past Medical History (1) Closed head injury Status: Acute (2) Anxiety and depression Status: Chronic (3) Graves disease Status: Chronic (4) History of kidney stones Status: Chronic (5) Neurofibromatosis Status: Chronic <Muniz,Ender - Last Filed: 04/12/20 06:20> Past Medical History Prior records reviewed: Yes - Several ER visits for urticaria Surgical History: - - Lithotripsy for kidney stones. Lives: Spouse/ Significant Other Smoking Status: Current every day smoker Alcohol: Rare Drugs: None - Family History Maternal Family History: Reports: Asthma Paternal Family History: Reports: Diabetes, Hypertension, - - Liver disease. <Muniz,Ender - Last Filed: 04/12/20 06:20> <Brent Sarmiento - Last Filed: 04/12/20 08:59> - Allergies and Home Meds Allergies/Adverse Reactions: Allergies No Known Allergies Allergy (Verified 04/09/20 06:00) Primary Care Physician: Faby Quiñones NP, DIRECTOR OPERATING ROOM-C [Primary Care Provider] - As soon as possible Review of Systems General: Denies: Chills, Fever, Malaise, Subjective Eyes: Denies: Visual changes - bilaterally, Blurred Vision - bilaterally ENT: Reports: - - Throat tightness. Denies: Bilateral ear pain, Rhinorrhea, Sore throat Cardiovascular: Denies: Chest pain, Palpitations Respiratory: Denies: Dyspnea, Cough, Sputum, Dyspnea on exertion Gastrointestinal: Denies: Abdominal pain, Nausea, Vomiting, Diarrhea Musculoskeletal: Denies: Myalgias, Arthralgias, Neck pain, Back pain, Swelling, Extremity Pain Skin: Reports: Rash. Denies: Wounds Endocrine: Denies: Polyuria, Polydipsia Hematologic: Denies: Easy bruising, Easy bleeding <Muniz,Ender - Last Filed: 04/12/20 06:20> Physical Exam Vital Signs/Narrative: Vital Signs Temp Pulse Resp BP Pulse Ox 04/12/20 05:40 98.3 F 111 H 16 137/98 H 96 Inital Vital Signs reviewed: Yes General: Well nourished, Well developed, Acute Distress Head: Normocephalic, Atraumatic Eyes: Perrl, EOMI. Negative for: Pale conjunctiva, Scleral icterus ENT: Moist mucous membranes, No rhinorrhea, - - Is no angioedema noted. Neck: Supple, Nontender, No lymphadenopathy, No JVD, - - Trachea is midline. There is no inspiratory expiratory stridor. Cardiovascular: Regular rhythm, No murmurs, Normal S1, Normal S2, Tachycardia Respiratory: No distress, CTA bilaterally, Chest nontender Abdomen: Soft, Nontender, Nondistended, Normal bowel sounds Extremities: Nontender, No edema Skin: Normal color, No Trauma, Rash. Negative for: Cyanosis, Diaphoresis, Jaundice Neurological: Alert, Oriented x3, Cranial nerves II-XII grossly intact, Normal Strength, Normal Sensation Psychological: - - Animated <Muniz,Ender - Last Filed: 04/12/20 06:20> Vital Signs/Narrative: Vital Signs Temp Pulse Resp BP Pulse Ox 04/12/20 07:32 75 20 H 106/70 98 04/12/20 05:40 98.3 F 111 H 16 137/98 H 96 <Brent Sarmiento - Last Filed: 04/12/20 08:59> Diagnostic/Tx/Re-eval - Medical Decision Making Patient has generalized urticaria of unknown etiology. She was treated with IV Pepcid, Benadryl and Solu-Medrol. Since she has no angioedema, wheezing, hemodynamic instability, epinephrine was not administered. Patient will need observation for 4 to 6 hours based on the severity of her symptoms. The oncoming physician will need to evaluate prior to discharge. Plan is for discharge with prescriptions for H1 and H2 tomasz as well as systemic steroids. Patient was instructed she must follow-up with her doctor for allergy testing since this is not the first occurrence and the inciting antigen is unknown. She was reassessed at 0627. Her rash has resolved. She is no longer anxious or itching. There is no dysphonia or difficulty swallowing. She is in no respiratory distress. She is not hypoxic. She is to be reevaluated by the morning physician at 1000. Prescriptions have been sent to her pharmacy of choice. <Ender Muniz - Last Filed: 04/12/20 06:20> - Medical Decision Making Torsten-patient was evaluated by me. She has no urticaria she appears well she is breathing comfortably speaking in full sentences I will discharge her. <Brent Sarmiento - Last Filed: 04/12/20 08:59> ED Disposition <Ender Muniz - Last Filed: 04/12/20 06:20> <Brent Sarmiento - Last Filed: 04/12/20 08:59> - Plan for ED Patient: Disposition: Home or Assisted Living Diagnosis: Urticaria of entire body Instructions: ED URTICARIA Prescriptions: DiphenhydrAMINE [Benadryl] 25 mg PO [id number] #20 cap Transmission Status: Received by [id number] Prednisone [Deltasone] 40 mg PO DAILY #8 tab Transmission Status: Received by [id number] Famotidine [Pepcid] 20 mg PO BID #7 tab Transmission Status: Received by [id number] Referrals: Faby Quiñones NP, DIRECTOR OPERATING ROOM-C [Primary Care Provider] - As soon as possible Additional Instructions: You must follow-up with your primary practitioner for allergy testing to determine the cause of your rash. Your reaction may become more severe and life-threatening and importance for urgent follow-up and testing.
[2020-04-12] MEDS: DiphenhydrAMINE 50 MG/ML Syringe IV (05:57)
[2020-04-12] MEDS: Famotidine 200 MG/20 ML MDV 20 MG in 0.9% Normal Saline (Pres. free 8 ML 300 MG IV (05:57)
[2020-04-12] MEDS: MethylPREDNISolone 125 MG/2 ML Vial IV (05:57)
[2020-04-12 07:32] VITALS: BP 106/70; PULSE 75; RESP 20; O2SAT 98
[2020-04-12 09:00] VITALS: BP 109/74; PULSE 79; RESP 15; O2SAT 98
== END 2020-04-12 09:07 | disposition home or self-care (01) ==
PROVIDERS: Emergency Provider Emergency Medicine; PCP Nurse Practitioner Family
DX: L50.9 Urticaria, unspecified (principal); F17.200 Nicotine dependence, unspecified, uncomplicated; F32.9 Major depressive disorder, single episode, unspecified; Z87.442 Personal history of urinary calculi
CPT/HCPCS: 96374; 96375; 99283; A4216; J3490

== ENCOUNTER 2020-04-16 | Emergency (ER) | payer OTHER, SELFPAY ==
[2020-04-16 00:03] VITALS: BP 102/73; PULSE 85; RESP 18; TEMP 36.7; O2SAT 100; BMI 23.2
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
== END 2020-04-16 00:35 | disposition home or self-care (01) ==
LOC: ED 00:31
PROVIDERS: Emergency Provider Emergency Medicine; PCP Nurse Practitioner Family
DX: F43.0 Acute stress reaction (principal); F17.200 Nicotine dependence, unspecified, uncomplicated
CPT/HCPCS: 99284

== ENCOUNTER 2020-12-23 06:49 | Emergency (ER) | payer MEDICAID, SELFPAY ==
[2020-12-23 06:49] VITALS: BP 125/84; PULSE 81; RESP 14; TEMP 37; O2SAT 100; BMI 21.2
--- NOTE | 2020-12-23 07:12 | EX.ED.VIS.UR ---
HPI HPI - URI History of Present Illness Chief Complaint: Ear Problem Informant: patient Onset/Context/Timing Onset: Days (3) Context: Gradual Onset Timing: Continuous Quality: Sharp Location: Right ear Worsened by: Swallowing Associated Symptoms Associated Symptoms: Positive for Headache; Negative for Nausea, Vomiting, Shortness of Breath, Chest Pain, Nonproductive cough, Hemoptysis and Productive Cough Narrative Narrative: Patient presents with a sore throat and right ear pain that has been getting worse over the past 3 days. Patient states that she started with a sore throat 3 days ago. Patient states that she then developed pain in her right ear. Patient describes her pain as sharp. Patient states everything makes it worse. Patient states nothing makes it better. Patient states pain radiates to the right uatsdin area and behind her right ear. Patient denies any discharge or drainage. Patient denies any fevers or chills. Patient denies any cough. ROS ROS ED Constitutional Constitutional ED: Denies chills or fever(s) Eyes Eyes: Denies blurry vision or change in vision ENT ENT ED: Reports ear pain right and sore throat; Denies rhinorrhea Cardiovascular Cardiovascular: Denies chest pain or palpitations Respiratory/Chest Respiratory/Chest: Denies cough or dyspnea Gastrointestinal Gastrointestinal: Denies nausea or vomiting Genitourinary Genitourinary ED: Denies dysuria or hematuria Musculoskeletal Musculoskeletal: Reports neck pain; Denies back pain Integumentary Denies abscess or rash Neurologic Neurologic: Reports headache(s); Denies weakness Allergic/Immunologic Allergic/Immunologic ED: Denies mouth swelling or urticaria PFSH PFSH Home Medications duloxetine 60 mg PO DAILY 01/28/20 [History Last Taken 04/08/20] lorazepam 0.5 mg PO BID 12/23/20 [History Last Taken Unknown] bxtapwje-qsozzwvzf-DW 4 drp RIGHT EAR Q6H 7 Days #10 ml 12/23/20 [Rx Last Taken Unknown] zolpidem 10 mg PO QHS 12/23/20 [History Last Taken Unknown] Allergy/AdvReac Type Severity Reaction Status Date / Time No Known Allergies Allergy Verified 12/23/20 06:51 Surgical History (Updated 12/23/20 @ 07:[address] Apollo Wall, DO) History of dilatation and curettage History of hysteroscopy Social History Smoking Status: Current every day smoker tobacco type: cigarettes EXAM Physical Exam Const Vital Signs: 12/23/20 06:49 Temperature 98.6 F Temperature Source Temporal Pulse Rate 81 Respiratory Rate 14 Blood Pressure 125/84 H Blood Pressure Mean 97 Pulse Ox 100 Oxygen Delivery Method Room Air Positive well nourished and well developed General Appearance ED: well developed HEENT normocephalic and atraumatic External Ear: mastoids normal External Auditory Canal: EAC's abnormal right erythema, edema and tenderness Tympanic Membrane ED: Yes TM's normal bilaterally Tympanic Membrane: TM's normal bilaterally Throat: posterior oropharynx abnormal Positive for erythema; Negative for exudates Eyes PERRL and EOMs intact bilaterally Neck no lymphadenopathy and supple Resp normal respiratory effort and clear to auscultation bilaterally Cardio Rate: regular rate Rhythm: regular rhythm GI non-tender and non-distended Auscultation: normoactive bowel sounds Palpation: soft Extremity normal to inspection Neuro oriented x3, CN's II-XII intact bilaterally and no sensory deficits noted Sensorium / Orientation: alert Motor Exam: strength 5/5 throughout Psych mental status grossly normal MDM MDM MDM Narrative Medical decision making narrative: Rapid strep was obtained and was negative. Patient was advised of her results. Patient was given a prescription for Cortisporin otic drops. Patient was instructed use 4 drops 4 times a day for the next week. Patient was instructed to follow-up with her primary care physician in 5 to 7 days. Patient understood and was agreeable with the plan. All questions were answered. Discharge Plan Triage Chief Complaint: Ear Problem ED Provider: Apollo Wall Dx/Rx/DC Orders Clinical Impression: Acute otitis externa of right ear, Viral pharyngitis Instructions: ED Pharyngitis, Viral, ED External Ear Infection (Adult) Prescriptions: New xfqgqsik-itcpsokaz-WI 3.5-10,000-1 mg/mL-unit/mL-% solution 4 drp RIGHT EAR Q6H 7 Days Qty: 10 RF: 0 No Action duloxetine 60 MG capsule 60 mg PO DAILY RF: 0 lorazepam 0.5 mg tablet 0.5 mg PO BID RF: 0 zolpidem 10 mg tablet 10 mg PO QHS RF: 0 Primary Care Provider: Faby Quiñones NP Referrals: Nuria,Faby PLASTIC PANEL INSTALLER, PLASTIC PANEL INSTALLER-C [Primary Care Provider] - 5-7 Days Disposition Disposition: Home, Self Care
--- NOTE | 2020-12-23 08:14 | ED.RN ---
pharmacynot able to obtain ear drops. Prescription sent
== END 2020-12-23 08:16 | disposition home or self-care (01) ==
PROVIDERS: Emergency Provider Emergency Medicine; PCP Nurse Practitioner Family
DX: H60.501 Unspecified acute noninfective otitis externa, right ear (principal); J02.8 Acute pharyngitis due to other specified organisms; B97.89 Other viral agents as the cause of diseases classified elsewhere; F17.210 Nicotine dependence, cigarettes, uncomplicated; Z79.899 Other long term (current) drug therapy
CPT/HCPCS: 87880; 99282

== ENCOUNTER 2021-02-27 11:12 | Emergency (ER) | payer MEDICAID, SELFPAY ==
[2021-02-27] VITALS (9 sets, daily range): BP systolic 99–137; BP diastolic 57–86; PULSE 81–102; RESP 13–30; TEMP 37.7–39.1; O2SAT 95–100; BMI 23.6
--- NOTE | 2021-02-27 11:18 | CT_ITS ---
STUDY: CT HEAD STROKE PROTOCOL W/O CONTRAST INJECTION REASON FOR EXAM: Female, 41 years old. STROKE RADIATION DOSAGE (If Supplied By Facility): CTDIvol = ( 44.99 ) mGy, DLP = ( 728.62 ) mGycm TECHNIQUE: Transaxial CT imaging of the brain was performed without administration of intravenous contrast material. Individualized dose optimization techniques were used for this CT. COMPARISON: Comparison is made with prior examination dated 09/17/2018. FINDINGS: Normal soft tissue structures. Normal calvarium. Normal size ventricles and extra-axial spaces for the patient''s age. Normal white matter tracts of the cerebral hemispheres. Normal basal ganglia and thalami. Normal brainstem. Normal cerebellum. There is no intracranial hemorrhage. There are no findings of an acute ischemic infarction. Normal visualized paranasal sinuses. CT/STROKE Brain/Head without Cont IMPRESSION: Normal unenhanced CT scan of the brain. N.B. : The above Results were Read Back by Francisco Ramirez MD to Radha Martinez and understanding confirmed on 02/27/2021 11:36:18 (ET). Electronically Signed: Francisco Ramirez MD at 11:37 EDT , Service support ,
--- NOTE | 2021-02-27 11:33 | NURSING ---
STROKE ALERT CALLED [id number]
--- NOTE | 2021-02-27 11:39 | EKG12_ITS ---
Test Reason : STROKE Blood Pressure : / mmHG Vent. Rate : 094 BPM Atrial Rate : 094 BPM P-R Int : 138 ms QRS Dur : 096 ms QT Int : 352 ms P-R-T Axes : 043 076 060 degrees QTc Int : 440 ms Normal sinus rhythm Normal ECG Confirmed by MIKE AHUMADA, KAYLIE ([id number]), assignment desk editor ALEJO GONSALVES ([id number]) on 03/02/2021 1:09:24 PM Referred By: HANNAH Confirmed By:KAYLIE MCKEON MD
--- NOTE | 2021-02-27 11:39 | RAD_ITS ---
STUDY: X-RAY CHEST REASON FOR EXAM: Female, 41 years old. Neuro deficit, acute, stroke suspected TECHNIQUE: Single AP portable view of the chest. COMPARISON: Comparison is made with prior study 09/18/2018. FINDINGS: EKG lead projects are seen. The lungs are clear and expanded. There is no demonstrated pleural abnormality. Normal size heart. Normal mediastinum and segun. Normal visualized pulmonary arteries. Normal visualized aortic arch and descending thoracic aorta. Normal visualized thoracic spine. Normal visualized ribs, clavicles, and shoulders. There is no demonstrated abnormality of the visualized soft tissue structures of the upper abdomen. RAD/Chest 1 View IMPRESSION: Normal x-ray examination of the chest. Electronically Signed: Francisco Ramirez MD at 12:38 EDT , Service support ,
--- NOTE | 2021-02-27 11:39 | NURSING ---
FAXED FACESHEET TO [facility]
--- NOTE | 2021-02-27 11:40 | EDS_ITS ---
HPI History of Present Illness Chief Complaint: Numb/Ting Informant: patient Onset/Context/Timing Onset: Yesterday Context: Gradual Onset Quality and Location: Positive for Left Face Parasthesia, Left Arm Parasthesia, Left Leg Parasthesia and Left Arm Weakness Current Severity: Mild Maximum Severity: Moderate Narrative Narrative: Patient presents secondary to cough congestion and chills along with numbness and tingling. Patient states she started not feeling well last evening. She got chills with some aching in her back. She states when she woke at 530 this morning she felt left-sided facial numbness and left arm numbness. She did report dropping some items with her left hand at work. When she started feeling numbness start in her left toes she came to the emergency room. She now tells me she believes the numbness and tingling started around dinnertime last evening. [facility] Medical History Graves disease History of kidney stones Neurofibromatosis Home Medications duloxetine 90 mg PO DAILY 01/28/20 [History Last Taken 04/08/20] lorazepam 0.5 mg PO BID PRN 12/23/20 [History Last Taken Unknown] zolpidem 10 mg PO QHS 12/23/20 [History Last Taken Unknown] Allergy/AdvReac Type Severity Reaction Status Date / Time No Known Allergies Allergy Verified 02/27/21 11:21 Surgical History History of dilatation and curettage History of hysteroscopy History of lithotripsy Social History Smoking Status: Current every day smoker tobacco type: cigarettes ROS ROS ED Constitutional Constitutional ED: Reports chills Eyes Eyes: Denies blurry vision or change in vision ENT ENT ED: Reports other Details: Congestion Cardiovascular Cardiovascular: Denies chest pain Respiratory/Chest Respiratory/Chest: Reports cough and dyspnea Gastrointestinal Gastrointestinal: Denies abdominal pain, diarrhea, nausea or vomiting Musculoskeletal Musculoskeletal: Reports back pain and myalgias Neurologic Neurologic: Reports paresthesias and weakness Hematologic/Lymphatic Hematologic/Lymphatic: Denies easy bleeding or easy bruising Allergic/Immunologic Allergic/Immunologic ED: Denies urticaria EXAM Physical Exam Const Vital Signs: 02/27/21 11:13 02/27/21 11:24 02/27/21 11:41 Temperature 100 F H 100.0 F H Temperature Source Temporal Temporal Pulse Rate 102 H 102 H Respiratory Rate 18 18 Blood Pressure 137/86 H 137/86 H Blood Pressure Mean 103 103 Pulse Ox 100 100 100 Oxygen Delivery Method Room Air Room Air Room Air 02/27/21 12:15 02/27/21 12:55 02/27/21 13:15 Temperature 102.3 F H Temperature Source Oral Pulse Rate 97 95 98 Respiratory Rate 30 H 17 16 Blood Pressure 115/68 113/61 104/62 Blood Pressure Mean 83 78 76 Pulse Ox 97 98 98 Oxygen Delivery Method Room Air Room Air Room Air 02/27/21 13:45 02/27/21 14:23 Temperature Temperature Source Pulse Rate 84 81 Respiratory Rate 27 H 23 H Blood Pressure 107/63 99/57 L Blood Pressure Mean 77 71 Pulse Ox 98 96 Oxygen Delivery Method Room Air Positive well nourished and well developed General Appearance ED: well developed HEENT Reports normocephalic and head/scalp atraumatic Eyes PERRL and EOMs intact bilaterally Neck supple Chest Wall inspection of chest normal and palpation of chest normal Resp normal respiratory effort and clear to auscultation bilaterally Cardio regular rate and regular rhythm GI normal to inspection, nondistended, normoactive bowel sounds Palpation: soft Extremity normal to inspection Neuro oriented x3 Sensorium / Orientation: alert Psych mental status grossly normal Skin no rashes or lesions noted STROKE Vital Signs/Narrative: Vital Signs Temp Pulse Resp BP Pulse Ox 02/27/21 14:23 81 23 H 99/57 L 96 02/27/21 13:45 84 27 H 107/63 98 02/27/21 13:15 98 16 104/62 98 02/27/21 12:55 102.3 F H 95 17 113/61 98 02/27/21 12:15 97 30 H 115/68 97 02/27/21 11:41 100 02/27/21 11:24 100.0 F H 102 H 18 137/86 H 100 02/27/21 11:13 100 F H 102 H 18 137/86 H 100 NIHSS Initial: 1a Level of Consciousness: 0 1b LOC Questions (Score 2 if aphasic/stupor): 0 1c LOC Commands (Only score 1st attempt): 0 2 Best Gaze (If aphasic, use reflexive mvmts.): 0 3 Visual: 0 4 Facial Palsy: 0 5 Motor Arm Right (UN = amputation/fusion): 0 5 Motor Arm Left: 0 6 Motor Leg Right: 0 6 Motor Leg Left: 0 7 Limb ataxia (Only + if out of proportion): 0 8 Sensory (Aphasia/stupor=0 or 1, coma=2): 1 9 Best Language: 0 10 Dysarthria (mute, coma=2, intubated=UN): 0 11 Extinction and Inattention (only scored if +): 0 Total Score: 1 MDM MDM MDM Narrative Medical decision making narrative: Patient was made a stroke alert on arrival. She was sent immediately for CT scan of the head. Lab work, EKG, chest x-ray, Covid swab ordered. Lab Data Attestation: I reviewed the patient's lab results. Labs: Laboratory Results - last 24 hr 02/27/21 02/27/21 02/27/21 11:19 11:28 11:28 WBC 17.7 H RBC 4.76 Hgb 14.0 Hct 41.3 MCV 86.8 MCH 29.4 MCHC 33.9 RDW Std Deviation 48.1 H RDW Coeff of Yoselin 15.0 H Plt Count 232 MPV 10.7 Immature Gran % (Auto) 2.900 H Neut % (Auto) 85.7 H Lymph % (Auto) 5.3 L [place] % (Auto) 5.7 Eos % (Auto) 0.2 Baso % (Auto) 0.2 Absolute Neuts (auto) 15.2 H Absolute Lymphs (auto) 0.93 Nucleated RBC % 0 PT 13.0 INR 1.0 APTT 29.1 Sodium Potassium Chloride Carbon Dioxide Anion Gap BUN Creatinine Estim Creat Clear Calc Est GFR (MDRD) Af Amer Est GFR (MDRD) Non-Af BUN/Creatinine Ratio Glucose Calcium Troponin I High Sens POC Glucose 119 H 02/27/21 11:28 WBC RBC Hgb Hct MCV MCH MCHC RDW Std Deviation RDW Coeff of Yoselin Plt Count MPV Immature Gran % (Auto) Neut % (Auto) Lymph % (Auto) [place] % (Auto) Eos % (Auto) Baso % (Auto) Absolute Neuts (auto) Absolute Lymphs (auto) Nucleated RBC % PT INR APTT Sodium 133 L Potassium 3.2 L Chloride 100 Carbon Dioxide 26.0 Anion Gap 7 BUN 11 Creatinine 0.76 Estim Creat Clear Calc 86.77 Est GFR (MDRD) Af Amer 107 Est GFR (MDRD) Non-Af 88 BUN/Creatinine Ratio 14.4 Glucose 108 H Calcium 8.8 Troponin I High Sens 6 POC Glucose Radiography Diagnostic Testing: Radiology Impression Brain CT 02/27/21 11:18 IMPRESSION: Normal unenhanced CT scan of the brain. N.B. : The above Results were Read Back by Francisco Ramirez MD to Radha Martinez and understanding confirmed on 02/27/2021 11:36:18 (ET). Electronically Signed: Francisco Ramirez MD at 11:37 EDT , Service support , ADDENDUM: 02/27/21 1144 IMPRESSION: Normal unenhanced CT scan of the brain. N.B. : The above Results were Read Back by Francisco Rmairez MD to Radha Martinez and understanding confirmed on 02/27/2021 11:36:18 (ET). Electronically Signed: Francisco Ramirez MD at 11:37 EDT , Service support , Chest X-Ray 02/27/21 11:39 IMPRESSION: Normal x-ray examination of the chest. Electronically Signed: Francisco Ramirez MD at 12:38 EDT , Service support , Head/Neck CTA 02/27/21 12:09 IMPRESSION: Normal CTA Head and neck with contrast. Electronically Signed: Francisco Ramirez MD at 13:10 EDT , Service support , EKG Initial EKG: Attestation: I personally reviewed and interpreted this EKG as follows: Interpretation: Sinus Rhythm (Sinus at 94 with no acute ischemia.) Treatment and Re-Evaluation Comments:: I spoke with the neurologist from [facility] on the phone. He asked that we go get the CTAs. If there was any evidence of LVO they would take the patient in transfer. CTAs are unremarkable. He did not recommend TPA. On repeat evaluation patient states she continues to have numbness on her left side. Blood work is reviewed with her. Potassium is slightly low at 3.2. This will be replaced orally. Covid swab is negative. Chest x-ray reveals no infiltrate per my interpretation. Radiologist interpretation is also reviewed. Because the patient is still having symptoms I did recommend observation stay for further work-up including MRI. She does have neurofibromatosis which may change her neurologic symptoms. I will speak with the hospitalist. Addendum: I was notified by nursing staff that the patient was now wishing to leave and not stay in the hospital. I would presented back to the bedside to discuss this with her. She states she has a chance to see her child that she has not been able to see in the last 2 years. She needs to leave to go do that. She understands that she may be having a stroke and understands the risks associated with it. She was advised that she can return anytime. She is advised to follow-up with her neurologist as soon as possible. Stroke Documentation Questions Stroke Team Activated: Yes IV Alteplase (t-PA) Administered: No Discharge Plan Triage Chief Complaint: Numb/Ting ED Provider: Radha Martinez Dx/Rx/DC Orders Clinical Impression: Paresthesias, Viral URI Instructions: ED URI, Viral, No Abx (Adult), ED Paraesthesias Prescriptions: No Action duloxetine 60 MG capsule 90 mg PO DAILY RF: 0 lorazepam 0.5 mg tablet 0.5 mg PO BID PRN (Reason: Anxiety) RF: 0 zolpidem 10 mg tablet 10 mg PO QHS RF: 0 Primary Care Provider: Faby Quiñones NP Referrals: Faby Quiñones NP, [employer] OPERATOR-[facility] [Primary Care Provider] - Disposition Disposition: Against Medical Advice
--- NOTE | 2021-02-27 11:49 | NURSING ---
NO OLD EKGS
[2021-02-27 11:50] LABS: Absolute Lymphocyte Count 0.93 X10^3/uL (0.83-4.51); Absolute Neutrophil Count 15.2 X10^3/uL (2.0-7.7); Basophil# 0.04 X10^3/uL; Basophil% 0.2 % (0-1); Eosinophil# 0.03 X10^3/uL; Eosinophils% 0.2 % (0-5); Hematocrit 41.3 % (37-47); Lymphocyte # 0.93 X10^3/ul (0.83-4.51); Lymphocyte % 5.3 % (19-41); Mean Corp Hgb Conc 33.9 g/dL (32-36); Mean Corpuscular Hgb 29.4 pg (27.0-32.0); Mean Corpuscular Volume 86.8 fL (81-99); Mean Platelet Vol. 10.7 fl (6.2-12.0); Monocyte% 5.7 % (0-10); NRBC Flagged by Analyzer 0 % (0-5); Neutrophil # 15.18 X10^3/uL (2.7-7.7); Neutrophil % 85.7 % (47-70); Platelet Count 232 K/mm3 (150-450); RBC Distribution Width SD 48.1 fl (35.1-43.9); Red Blood Count 4.76 M/mm3 (4.2-5.4); White Blood Count 17.7 K/mm3 (4.4-11.0)
[2021-02-27] MEDS: Acetaminophen 500 MG Tablet 1000 MG PO (11:55)
[2021-02-27 12:02] LABS: Partial Thromboplast Time 29.1 Seconds (24.1-36.2)
[2021-02-27 12:03] LABS: Anion Gap 7 (5-15); BUN 11 mg/dL (7-18); BUN/Creat Ratio 14.4 RATIO (10-20); Calcium,Total 8.8 mg/dL (8.5-10.1); Chloride 100 mmol/L (98-107); Creatinine, Serum 0.76 mg/dL (0.55-1.02); EST Glomerular Filtration Rate 88 mL/min (>60); Est Glom Filt Rate - Afr Amer 107 mL/min (>60); Estimated Creatinine Clearance 86.77 ml/min; Glucose 108 mg/dL (74-106); Potassium 3.2 mmol/L (3.5-5.1); Sodium Level 133 mmol/L (136-145); Troponin-I HS 6 pg/mL (3.0-54.0)
--- NOTE | 2021-02-27 12:09 | CT_ITS ---
STUDY: CTA HEAD AND NECK WITH CONTRAST REASON FOR EXAM: Female, 41 years old. Paresthesias RADIATION DOSAGE (If Supplied By Facility): CTDIvol = ( 18.66 ) mGy, DLP = ( 665.19 ) mGycm TECHNIQUE: CT angiography was performed with a multi-detector CT scanner. Data acquisition was obtained from the skull base through the vertex following intravenous administration of IV 100mL [id number]-370. MIP images were reconstructed from the axial data set. Post-processing of the angiographic images was performed, with multiplanar reformation and 3D reconstruction. Individualized dose optimization techniques were used for this CT. COMPARISON: No relevant priors. FINDINGS: Normal bilateral petrous carotid arteries. Normal right cavernous carotid artery with a normal supraclinoid bifurcation. Normal left cavernous carotid artery with a normal supraclinoid bifurcation. Normal right A1 segments of the anterior cerebral artery. Normal left A1 segments of the anterior cerebral artery. Normal intact anterior communicating artery (ACOM). Normal bilateral A2 segments of the anterior cerebral arteries. Normal right M1 and M2 segments of the middle cerebral arteries, with a normal M1 bifurcation. Normal left M1 and M2 segments of the middle cerebral arteries, with a normal M1 bifurcation. Normal right posterior communicating artery (PCOM). Normal left posterior communicating artery (PCOM). Normal bilateral vertebral arteries. Normal basilar artery with a normal basilar bifurcation. The visualized bilateral superior cerebellar (SCA) arteries are normal. Normal bilateral P1, P2 and visualized P3 segments of the posterior cerebral arteries. There is no demonstrated aneurysm of the k[place] of [place]. There is no demonstrated abnormality of the visualized brain. AORTIC ARCH: Normal visualized aortic arch. Normal origins of the brachiocephalic, left common carotid, and left subclavian arteries. RIGHT CAROTID ARTERIES: Normal right common carotid artery (CCA). Normal right common carotid bulb. Normal origin of the right internal carotid (ICA) artery without a hemodynamically significant stenosis. Normal visualized cervical portion of the right internal carotid artery. Normal origin of the right external carotid artery (ECA). LEFT CAROTID ARTERIES: Normal left common carotid artery (CCA). Normal left common carotid bulb. Normal origin of the left internal carotid (ICA) artery without a hemodynamically significant stenosis. Normal visualized cervical portion of the left internal carotid artery. Normal origin of the left external carotid artery (ECA). VERTEBRAL ARTERIES: Normal bilateral vertebral arteries. CT/CTA Head AND Neck W/ Contrast IMPRESSION: Normal CTA Head and neck with contrast. Electronically Signed: Francisco Ramirez MD at 13:10 EDT , Service support ,
[2021-02-27 13:10] LABS: Bedside Glucose 119 mg/dL (70-110)
[2021-02-27] MEDS: Potassium Chloride Oral Tablet 20 MEQ 40 MEQ PO (14:39)
== END 2021-02-27 15:00 | disposition left against medical advice (07) ==
PROVIDERS: Emergency Provider Emergency Medicine; PCP Nurse Practitioner Family
DX: R20.2 Paresthesia of skin (principal); J06.9 Acute upper respiratory infection, unspecified; F17.210 Nicotine dependence, cigarettes, uncomplicated; Z87.442 Personal history of urinary calculi; Z79.899 Other long term (current) drug therapy
CPT/HCPCS: 70450; 70496; 70498; 71045; 80048; 82962; 84484; 85025; 85610; 85730; 87426; 93005; 99285; Q9967; A4216

== ENCOUNTER 2021-04-07 07:06 | Emergency (ER) | payer MEDICAID, SELFPAY ==
[2021-04-07 07:07] VITALS: BP 135/86; PULSE 108; RESP 16; TEMP 37.4; O2SAT 100; BMI 21.6
--- NOTE | 2021-04-07 07:42 | EX.ED.DYSGE1 ---
HPI History of Present Illness Chief Complaint: Fever Informant: patient Onset/Context/Timing Onset: Weeks Context: Gradual Onset Timing: Intermittent Current Severity: Mild Maximum Severity: Mild Narrative Narrative: 41-year-old female history of hypothyroidism, kidney stones, mitral valve prolapse and neurofibromatosis. Patient states she has been sick on and off for approximately a 1 month. She states she is had a cough generally nonproductive. Fever as high as 10 2-1 04. Associated nausea, vomiting and diarrhea. She has lost taste. She did negative Covid test early onset of the illness. She denies any dysuria. She states she has lost some weight. She denies any dysuria or abdominal pain. States she was actually feeling better the last 1 to 2 weeks and then got significant chills last night Prior similar symptoms: Yes Recent Illness/Hospitalization: No PFSH PFS Medical History Graves disease History of kidney stones Neurofibromatosis Home Medications duloxetine 60 mg PO DAILY 01/28/20 [History Last Taken 02/27/21] zolpidem 10 mg PO QHS PRN PRN 12/23/20 [History Last Taken 02/24/21] duloxetine 30 mg PO DAILY 02/27/21 [History Last Taken 02/27/21] Allergy/AdvReac Type Severity Reaction Status Date / Time No Known Allergies Allergy Verified 04/07/21 07:10 Surgical History History of dilatation and curettage History of hysteroscopy History of lithotripsy Social History Smoking Status: Former smoker ROS ROS ED ROS Narrative Cough. Nausea, vomiting and diarrhea. Fever and chills. Review of Systems ROS Unobtainable: Denies due to encephalopathy Constitutional Constitutional ED: Reports chills and fever(s) Eyes Eyes: Denies change in vision ENT ENT ED: Denies ear pain or sore throat Cardiovascular Cardiovascular: Denies chest pain or palpitations Respiratory/Chest Respiratory/Chest: Reports cough; Denies dyspnea Gastrointestinal Gastrointestinal: Reports diarrhea, nausea and vomiting; Denies abdominal pain, constipation or melena Genitourinary Genitourinary ED: Denies dysuria or hematuria Musculoskeletal Musculoskeletal: Reports myalgias; Denies arthralgias Integumentary Denies rash Neurologic Neurologic: Denies headache(s) Psychiatric Psychiatric: Denies depression Endocrine Endocrinology: Denies polyuria Allergic/Immunologic Allergic/Immunologic ED: Denies urticaria EXAM Physical Exam Narrative Exam Narrative: Middle-aged female no acute distress. Vital signs stable afebrile. Pulse ox 9% on room air no hypoxia. Temperature nine 9.4. She does not look septic or nor toxic. She does not look dehydrated. HEENT exam unremarkable. Multiple missing teeth. Posterior pharynx normal. Neck nontender. No lymphadenopathy. Lungs clear to auscultation bilaterally. Heart regular rhythm rate about 105 no murmur. Abdomen soft nontender normal bowel sounds no peritoneal signs. Moving all 4 extremities. Nontender. No edema. No rashes. Back nontender. Neurologically awake and alert. Const Vital Signs: 04/07/21 07:07 04/07/21 07:19 04/07/21 10:22 Temperature 99.4 F H Temperature Source Temporal Pulse Rate 108 H Respiratory Rate 16 16 Respiratory Effort Normal Non-Labored Respiratory Pattern Normal Blood Pressure 135/86 H Blood Pressure Mean 102 Pulse Ox 100 Oxygen Delivery Method Room Air Positive well nourished and well developed; Negative for obese, cachectic, contractures or unkempt General Appearance ED: well developed and NAD; Negative for unkempt, cachectic, contractures, cyanotic, diaphoretic or pallor Nutritional Appearance: Negative for cachectic or obese HEENT Reports moist mucous membranes Negative for trauma or tenderness Eyes PERRL and EOMs intact bilaterally Neck no lymphadenopathy, supple and no JVD General: Negative for tenderness Chest Wall inspection of chest normal and palpation of chest normal Resp normal respiratory effort and clear to auscultation bilaterally Effort and Inspection: Negative for pain with movement Auscultation: Negative for rales, rhonchi or wheezes Cardio regular rhythm, S1 normal heart sound, S2 normal heart sound and no murmurs Rate: tachycardic GI normal to inspection, nondistended, normoactive bowel sounds, non-tender, non-distended and no masses Inspection: Negative for abdominal distention Auscultation: normoactive bowel sounds Palpation: soft; Negative for tender, guarding or rebound tenderness present Back/Spine no CVA tenderness General Back: Negative for CVA tenderness Cervical Spine: Negative for cervical spine tenderness Thoracic Spine / Upper Back: Negative for thoracic spinal tenderness or paraspinal muscle tenderness Extremity normal to inspection General Extremety ED: Negative for edema or tenderness General Extremity: Negative for edema Neuro oriented x3 and CN's II-XII intact bilaterally Sensorium / Orientation: alert and orientation impaired; Negative for lethargic or stuporous Motor Exam: strength 5/5 throughout Psych mental status grossly normal Appearance: Negative for unkempt Mood & Affect: Negative for depressed or tearful Skin no rashes or lesions noted and no wounds General Skin Exam: Negative for jaundice or pallor MDM MDM MDM Narrative Medical decision making narrative: 41-year-old female with nausea, vomiting and diarrhea intermittently for a month. Also cough. Differential diagnoses include infectious etiology Covid versus pneumonia versus other. Screening labs and chest x-ray will be obtained along with a urinalysis. Repeat exam patient is doing well at 10:50 AM and will be discharged home. She will need outpatient follow-up. Lab Data Attestation: I reviewed the patient's lab results. Lab results narrative: Shows a white count 12.6. Hemoglobin 13.4. Platelets of 202. Electrolytes shows sodium 131. Potassium 3.2. Gap of 8 normal creatinine. Liver enzymes unremarkable. UA negative. No nitrates nor white cells and only rare bacteria. Labs: Laboratory Results - last 24 hr 04/07/21 04/07/21 04/07/21 07:44 07:49 07:49 WBC 12.6 H RBC 4.63 Hgb 13.4 Hct 39.9 MCV 86.2 MCH 28.9 MCHC 33.6 RDW Std Deviation 48.1 H RDW Coeff of Yoselin 15.3 H Plt Count 202 MPV 10.3 Immature Gran % (Auto) 0.300 Neut % (Auto) 88.0 H Lymph % (Auto) 6.3 L [place] % (Auto) 5.1 Eos % (Auto) 0.1 Baso % (Auto) 0.2 Absolute Neuts (auto) 11.1 H Absolute Lymphs (auto) 0.80 L Nucleated RBC % 0 Sodium 131 L Potassium 3.2 L Chloride 99 Carbon Dioxide 24.0 Anion Gap 8 BUN 8 Creatinine 0.70 Estim Creat Clear Calc 94.21 Est GFR (MDRD) Af Amer 117 Est GFR (MDRD) Non-Af 97 BUN/Creatinine Ratio 11.3 Glucose 87 Calcium 8.7 Total Bilirubin 0.70 AST 8 L ALT 11 L Alkaline Phosphatase 72 Total Protein 7.2 Albumin 3.1 L Globulin 4.1 Albumin/Globulin Ratio 0.8 L Urine Color Urine Clarity Urine pH Ur Specific [place] Urine Protein Urine Glucose (UA) Urine Ketones Urine Occult Blood Urine Nitrite Urine Bilirubin Urine Urobilinogen Ur Leukocyte Esterase Urine RBC Urine WBC Ur Squamous Epith Cells Urine Bacteria Urine Mucus COVID-19 (ALHAJI) Not Detected 04/07/21 08:38 WBC RBC Hgb Hct MCV MCH MCHC RDW Std Deviation RDW Coeff of Yoselin Plt Count MPV Immature Gran % (Auto) Neut % (Auto) Lymph % (Auto) [place] % (Auto) Eos % (Auto) Baso % (Auto) Absolute Neuts (auto) Absolute Lymphs (auto) Nucleated RBC % Sodium Potassium Chloride Carbon Dioxide Anion Gap BUN Creatinine Estim Creat Clear Calc Est GFR (MDRD) Af Amer Est GFR (MDRD) Non-Af BUN/Creatinine Ratio Glucose Calcium Total Bilirubin AST ALT Alkaline Phosphatase Total Protein Albumin Globulin Albumin/Globulin Ratio Urine Color Yellow Urine Clarity Clear Urine pH 7.0 Ur Specific [place] 1.010 Urine Protein 15 H Urine Glucose (UA) Normal Urine Ketones Negative Urine Occult Blood 50 H Urine Nitrite Negative Urine Bilirubin Negative Urine Urobilinogen 1 H Ur Leukocyte Esterase 500 H Urine RBC 0 SEEN Urine WBC 0-5 SEEN Ur Squamous Epith Cells 0-5 SEEN Urine Bacteria RARE Urine Mucus 0 SEEN COVID-19 (ALHAJI) Radiography Chest X-Ray - ED: 1 View, Heart, Lungs, Mediastinum, Bony Structures and No Acute Disease Diagnostic Testing: Clinical Impression(s) from Imaging Studies Chest X-Ray 04/07/21 08:00 IMPRESSION: Normal x-ray examination of the chest. Electronically Signed: Nathaniel Saavedra MD at 8:13 EST Tel , Service support , Single portable view chest x-ray interpreted by myself and the radiologist shows no acute abnormality. No mass nor pneumonia. Discharge Plan Triage Chief Complaint: Fever ED Provider: Félix Urias Dx/Rx/DC Orders Clinical Impression: Fever Instructions: ED FUO Adult Prescriptions: No Action duloxetine 60 MG capsule 60 mg PO DAILY RF: 0 zolpidem 10 mg tablet 10 mg PO QHS PRN PRN (Reason: Sleep) RF: 0 duloxetine 30 mg capsule,delayed release(DR/EC) 30 mg PO DAILY RF: 0 Primary Care Provider: Faby Quiñones NP Referrals: Faby Quiñones NP, MEDICAL RECRUITER-C [Primary Care Provider] - 3-5 Days Activity Restrictions/Additional Instructions: Labs today unremarkable. Follow-up your primary care provider for further evaluation. Disposition Disposition: Home, Self Care
[2021-04-07 08:00] LABS: Absolute Neutrophil Count 11.1 X10^3/uL (2.0-7.7); Basophil# 0.02 X10^3/uL; Basophil% 0.2 % (0-1); Eosinophil# 0.01 X10^3/uL; Eosinophils% 0.1 % (0-5); Hematocrit 39.9 % (37-47); Hemoglobin 13.4 g/dL (12.0-15.0); Lymphocyte % 6.3 % (19-41); Mean Corp Hgb Conc 33.6 g/dL (32-36); Mean Corpuscular Hgb 28.9 pg (27.0-32.0); Mean Corpuscular Volume 86.2 fL (81-99); Mean Platelet Vol. 10.3 fl (6.2-12.0); Monocyte# 0.64 X10^3/uL; Monocyte% 5.1 % (0-10); NRBC Flagged by Analyzer 0 % (0-5); Platelet Count 202 K/mm3 (150-450); RBC Distribution Width CV 15.3 % (11.6-14.6); RBC Distribution Width SD 48.1 fl (35.1-43.9); Red Blood Count 4.63 M/mm3 (4.2-5.4); White Blood Count 12.6 K/mm3 (4.4-11.0)
--- NOTE | 2021-04-07 08:00 | RAD_ITS ---
STUDY: X-RAY CHEST REASON FOR EXAM: Female, 41 years old. cough TECHNIQUE: Single AP portable view of the chest. COMPARISON: 02/27/2021 FINDINGS: The lungs are clear and expanded. There is no demonstrated pleural abnormality. Normal size heart. Normal mediastinum and segun. Normal visualized pulmonary arteries. Normal visualized aortic arch and descending thoracic aorta. Normal visualized thoracic spine. Normal visualized ribs, clavicles, and shoulders. There is no demonstrated abnormality of the visualized soft tissue structures of the upper abdomen. RAD/Chest 1 View (Portable) IMPRESSION: Normal x-ray examination of the chest. Electronically Signed: Nathaniel Saavedra MD at 8:13 EST Tel , Service support ,
[2021-04-07] MEDS: 0.9% Normal Saline 1,000 ML 1000 ML IV (08:10)
[2021-04-07 08:16] LABS: ALB/GLOB Ratio 0.8 RATIO (0.9-2.4); AST(SGOT) 8 U/L (15-37); Alanine Aminotransfer ALT/SGPT 11 U/L (13-56); Albumin, Serum 3.1 g/dL (3.2-5.0); Alkaline Phosphatase 72 U/L (45-117); Anion Gap 8 (5-15); BUN 8 mg/dL (7-18); BUN/Creat Ratio 11.3 RATIO (10-20); Calcium,Total 8.7 mg/dL (8.5-10.1); Chloride 99 mmol/L (98-107); EST Glomerular Filtration Rate 97 mL/min (>60); Est Glom Filt Rate - Afr Amer 117 mL/min (>60); Estimated Creatinine Clearance 94.21 ml/min; Globulin 4.1 g/dL (2.2-4.2); Glucose 87 mg/dL (74-106); Potassium 3.2 mmol/L (3.5-5.1); Protein, Total 7.2 g/dL (6.4-8.2); Sodium Level 131 mmol/L (136-145)
[2021-04-07 08:43] LABS: Mucous, Urine 0 SEEN /hpf (<or=2+); Red Blood Cells-Urine 0 SEEN /hpf (0-5)
[2021-04-07 08:44] LABS: Color, Urine Yellow (Yellow); Glucose, Dipstick Normal (Normal); Ketone-Dipstick Negative (Negative); Leukocyte Esterase-Dipstick 500 /ul (Negative); Nitrite-Dipstick Negative (Negative); Occult Blood-Urine 50 /ul (Negative); Protein-Dipstick 15 mg/dl (Negative); Urine Bilirubin Dipstick Negative (Negative); Urine Clarity Clear (Clear); Urine Urobilinogen 1 mg/dl (Normal)
[2021-04-07 08:50] LABS: Bacteria RARE /hpf (None Seen); Squamous Epithelial Cells - UA 0-5 SEEN /hpf (5-10); White Blood Cells 0-5 SEEN /hpf (0-5)
[2021-04-07 10:22] VITALS: RESP 16
[2021-04-07 11:20] VITALS: PULSE 84; RESP 18; TEMP 38.3
== END 2021-04-07 11:22 | disposition home or self-care (01) ==
PROVIDERS: Emergency Provider Emergency Medicine; PCP Nurse Practitioner Family
DX: R50.9 Fever, unspecified (principal); Z87.891 Personal history of nicotine dependence; Z87.442 Personal history of urinary calculi; Z79.899 Other long term (current) drug therapy
CPT/HCPCS: 71045; 80053; 81001; 85025; 87635; 96360; 96361; 99284; J7030; U0005; A4216; U0003